=== PATIENT | female | born 1950 | race Caucasian/White ===

== ENCOUNTER → 2023-08-15 | Outpatient (CLI) | payer MEDICARE, OTHER ==
[~2023-08-15] MED LIST: CEPHALEXIN500 M1 PO
== END ==
LOC: COL.RAD 11:57
DX: M25.551 Pain in right hip (principal)
CPT/HCPCS: J0665; J3301; Q9967

== ENCOUNTER 2023-10-21 11:18 | Emergency (ER) | payer MEDICARE, OTHER ==
[~2023-10-21] VITALS: Ht 175.3 cm; Wt 95.9 kg
[2023-10-21 11:24] VITALS: BP 132/81; PULSE 78; TEMP 98.3
[2023-10-21] MEDS ORDERED: Doxycycline Monohydrate 100 MG CAP PO ONE (11:45)
[2023-10-21] MEDS ORDERED: DOXYCYCLINE 10100 MG PO (11:46)
== END 2023-10-21 12:30 | disposition home or self-care (01) ==
LOC: COL.ER 11:18
DX: L03.032 Cellulitis of left toe (principal)

== ENCOUNTER → 2023-11-23 | Outpatient (CLI) | payer MEDICARE, OTHER ==
[~2023-11-23] MED LIST changes: +DOXYCYCLINE 10100 MG PO; +Iohexol 300 - 10 ML VIAL IV ONE; +Triamcinolone 40 MG/ML 1 ML VIAL IJ ONE
== END ==
LOC: COL.RAD 08:26
DX: M25.551 Pain in right hip (principal)
CPT/HCPCS: J0665; J3301; Q9967